=== PATIENT | female | born 1980 | race Caucasian/White ===

== ENCOUNTER 2016-11-12 08:33 | Emergency (ER) | payer OTHER ==
[~2016-11-12] VITALS: Ht 147.3 cm; Wt 76.4 kg
[~2016-11-12 08:33] MED LIST: LEXAPRO 5MG5 MG PO; NEXIUM 20MG20 MG PO; NORCO 325 MG-51 TAB PO; PHENERGAN 25 TA25 MG PO; RESTORIL 77.5 MG/CAP PEG; ULTRAM 50MG TAB50 MG PO; ZOFRAN ODT4 MG PO
[2016-11-12 08:40] VITALS: BP 124/83; TEMP 99.2
[2016-11-12 09:45] LABS: BASO % 0.5 % (0.0-2.0); EOS # 0.2 (0.0-0.7); EOS % 4.1 % (0-4.0); GRAN # 2.3 (1.4-6.5); GRAN % 59.2 % (42.2-75.2); HEMATOCRIT 38.7 % (37.0-47.0); HEMOGLOBIN 12.7 g/dl (12.5-16.0); LYMPH # 1.1 (1.2-3.4); LYMPH % 27.9 % (20.0-51.0); MEAN CELL VOLUME 84 fl (80.0-100.0); MEAN CORPUSCULAR HEMOGLOBIN 27 pg (27.0-31.0); MEAN CORPUSCULAR HGB CONC 33 g/dl (33.0-37.0); MEAN PLATELET VOLUME 11.3 fl (7.4-10.4); MONO # 0.3 (0.1-0.6); MONO % 8.3 % (1.7-9.3); PLATELET COUNT 212 K/mm3 (130-400); RED BLOOD COUNT 4.63 M/mm3 (4.10-5.30); REDCELL DISTRIBUTION WIDTH-CV 14.1 % (11.5-14.5); WHITE BLOOD COUNT 3.9 K/mm3 (4.8-10.8)
[2016-11-12 10:07] LABS: ADJUSTED CALCIUM 9.2 mg/dL (8.4-10.2); ALBUMIN 3.7 gm/dL (3.5-5.0); BILIRUBIN,TOTAL 0.6 mg/dL (0.0-1.0); CREATININE, serum 0.66 mg/dL (0.52-1.25); TOTAL PROTEIN 6.9 gm/dL (6.4-8.2)
[2016-11-12 11:28] LABS: PH 6 (5-8); SQUAMOUS EPITHELIAL 0-2 /hpf; URINE APPEARANCE Clear; URINE BACTERIA None Seen /hpf; URINE BILIRUBIN Negative (NEGATIVE); URINE BLOOD 3+ (NEGATIVE); URINE COLOR Straw; URINE GLUCOSE Negative (NEGATIVE); URINE KETONE Negative (NEGATIVE); URINE RBC >50 /hpf; URINE UROBILINOGEN Negative (NEGATIVE); URINE WBC 0-2 /hpf
[2016-11-12] MEDS ORDERED: PROMETHAZINE12.5 M5 PO (12:00)
[2016-11-12] MEDS ORDERED: PERCOCET 325 MG1 TA2 PO (12:00)
[2016-11-12 12:32] VITALS: PULSE 99
== END 2016-11-12 12:33 | disposition home or self-care (01) ==
LOC: COL.ER 08:33
PROVIDERS: Physician Assistant Medical
DX: R10.11 Right upper quadrant pain (principal); K80.20 Calculus of gallbladder without cholecystitis without obstruction
CPT/HCPCS: J1170; J2405; J2550; J7030

== ENCOUNTER 2017-03-30 17:54 | Emergency (ER) | payer OTHER ==
[~2017-03-30] VITALS: Ht 147.3 cm; Wt 71.8 kg
[~2017-03-30 17:54] MED LIST changes: +PERCOCET 325 MG1 TA2 PO; +PROMETHAZINE12.5 M5 PO
[2017-03-30 18:10] VITALS: BP 110/72; TEMP 98.6
[2017-03-30] MEDS ORDERED: KLONOPIN 1MG1 MG PO (18:13)
[2017-03-30] MEDS ORDERED: ZOFRAN8 MG PO (18:13)
[2017-03-30] MEDS ORDERED: AMBIEN 10MG10 MG PO (18:14)
[2017-03-30 20:26] VITALS: PULSE 77
== END 2017-03-30 20:27 | disposition home or self-care (01) ==
LOC: COL.ER 17:54
DX: L23.6 Allergic contact dermatitis due to food in contact with the skin (principal); F41.9 Anxiety disorder, unspecified; F32.9 Major depressive disorder, single episode, unspecified; E06.3 Autoimmune thyroiditis; Z90.49 Acquired absence of other specified parts of digestive tract; Z87.442 Personal history of urinary calculi; Z98.890 Other specified postprocedural states
CPT/HCPCS: J1200; J2930; J7030

== ENCOUNTER 2017-05-23 12:27 | Emergency (ER) | payer OTHER ==
[~2017-05-23] VITALS: Ht 147.3 cm; Wt 79.4 kg
[~2017-05-23 12:27] MED LIST changes: +AMBIEN 10MG10 MG PO; +KLONOPIN 1MG1 MG PO; +ZOFRAN8 MG PO
[2017-05-23 12:29] VITALS: BP 115/75; PULSE 101; TEMP 98.8
[2017-05-23] MEDS ORDERED: SYNTHROID 0.0.025 MG (12:33)
[2017-05-23 13:14] LABS: BASO % 0.7 % (0.0-2.0); EOS % 0.4 % (0-4.0); GRAN # 3.7 (1.4-6.5); GRAN % 65.2 % (42.2-75.2); HEMATOCRIT 38.8 % (37.0-47.0); HEMOGLOBIN 12.9 g/dl (12.5-16.0); LYMPH # 1.5 (1.2-3.4); LYMPH % 26.6 % (20.0-51.0); MEAN CELL VOLUME 84 fl (80.0-100.0); MEAN CORPUSCULAR HEMOGLOBIN 28 pg (27.0-31.0); MEAN CORPUSCULAR HGB CONC 33 g/dl (33.0-37.0); MEAN PLATELET VOLUME 11.5 fl (7.4-10.4); MONO # 0.4 (0.1-0.6); MONO % 6.7 % (1.7-9.3); PLATELET COUNT 214 K/mm3 (130-400); RED BLOOD COUNT 4.61 M/mm3 (4.10-5.30); REDCELL DISTRIBUTION WIDTH-CV 14.4 % (11.5-14.5); WHITE BLOOD COUNT 5.7 K/mm3 (4.8-10.8)
[2017-05-23 13:25] LABS: ALBUMIN 3.9 gm/dL (3.5-5.0); BILIRUBIN,TOTAL 0.6 mg/dL (0.0-1.0); CALCIUM 8.9 mg/dL (8.4-10.2); CREATININE, serum 0.69 mg/dL (0.52-1.25); MAGNESIUM 1.9 mg/dL (1.6-2.3); POTASSIUM 3.6 mmol/L (3.4-5.0); TOTAL PROTEIN 7.1 gm/dL (6.4-8.2)
== END 2017-05-23 13:50 | disposition home or self-care (01) ==
LOC: COL.ER 12:27
PROVIDERS: Emergency Medicine
DX: R20.9 Unspecified disturbances of skin sensation (principal); E03.9 Hypothyroidism, unspecified; Z90.49 Acquired absence of other specified parts of digestive tract; Z98.890 Other specified postprocedural states; Z87.891 Personal history of nicotine dependence

== ENCOUNTER 2017-11-23 07:38 | Emergency (ER) | payer OTHER ==
[~2017-11-23] VITALS: Ht 147.3 cm; Wt 69.5 kg
[~2017-11-23 07:38] MED LIST changes: +SYNTHROID 0.0.025 MG
[2017-11-23 07:55] VITALS: BP 122/73; PULSE 88; TEMP 98.2
[2017-11-23] MEDS ORDERED: NUVARING VAG RING VG (07:59)
== END 2017-11-23 09:45 | disposition home or self-care (01) ==
LOC: COL.ER 07:38
DX: S43.402A Unspecified sprain of left shoulder joint, initial encounter (principal); F41.9 Anxiety disorder, unspecified; Z90.49 Acquired absence of other specified parts of digestive tract; W00.0XXA Fall on same level due to ice and snow, initial encounter

== ENCOUNTER 2018-07-03 23:03 | Emergency (ER) | payer OTHER ==
[~2018-07-03] VITALS: Ht 147.3 cm; Wt 77.3 kg
[~2018-07-03 23:03] MED LIST changes: +NUVARING VAG RING VG
[2018-07-03 23:10] VITALS: BP 119/85; TEMP 97.8
[2018-07-04] MEDS ORDERED: PAXIL 10MG10 MG PO (01:07)
[2018-07-04] MEDS ORDERED: LEVOXYL0.05 MG PO (01:08)
[2018-07-04 01:55] VITALS: PULSE 85
== END 2018-07-04 01:58 | disposition home or self-care (01) ==
LOC: COL.ER 23:03
DX: B34.9 Viral infection, unspecified (principal); E03.9 Hypothyroidism, unspecified
CPT/HCPCS: J1200; J7030

== ENCOUNTER 2019-04-24 10:41 | Emergency (ER) | payer OTHER ==
[~2019-04-24] VITALS: Ht 149.9 cm; Wt 81.8 kg
[~2019-04-24 10:41] MED LIST changes: +LEVOXYL0.05 MG PO; +PAXIL 10MG10 MG PO
[2019-04-24 10:45] VITALS: TEMP 98.1
[2019-04-24 11:25] LABS: COLLECTION METHOD CLEAN CATCH
[2019-04-24 11:28] LABS: BASO % 0.2 % (0.0-2.0); EOS % 0.1 % (0-4.0); GRAN % 87.8 % (42.2-75.2); HEMATOCRIT 44.8 % (37.0-47.0); HEMOGLOBIN 14.4 g/dl (12.5-16.0); LYMPH # 0.7 (1.2-3.4); MEAN CELL VOLUME 86 fl (80.0-100.0); MEAN CORPUSCULAR HEMOGLOBIN 28 pg (27.0-31.0); MEAN CORPUSCULAR HGB CONC 32 g/dl (33.0-37.0); MEAN PLATELET VOLUME 10.2 fl (7.4-10.4); MONO # 0.3 (0.1-0.6); MONO % 3.5 % (1.7-9.3); PLATELET COUNT 305 K/mm3 (130-400); RED BLOOD COUNT 5.22 M/mm3 (4.10-5.30); REDCELL DISTRIBUTION WIDTH-CV 15.2 % (11.5-14.5)
[2019-04-24 11:36] LABS: MUCOUS Present /lpf; PH 5 (5-8); URINE APPEARANCE Hazy; URINE BACTERIA None Seen /hpf; URINE BILIRUBIN Negative (NEGATIVE); URINE BLOOD 1+ (NEGATIVE); URINE COLOR Yellow; URINE GLUCOSE Negative (NEGATIVE); URINE KETONE 1+ (NEGATIVE); URINE LEUKOCYTE ESTERASE Negative (NEGATIVE); URINE NITRATE Negative (NEGATIVE); URINE PROTEIN(semi-quant) 1+ (NEGATIVE); URINE UROBILINOGEN Negative (NEGATIVE)
[2019-04-24 11:41] LABS: ALBUMIN 4.5 gm/dL (3.5-5.0); BILIRUBIN,TOTAL 0.5 mg/dL (0.0-1.0); CALCIUM 9.4 mg/dL (8.4-10.2); CREATININE, serum 0.66 (0.52-1.25); POTASSIUM 3.9 mmol/L (3.4-5.0); TOTAL PROTEIN 8.4 gm/dL (6.4-8.2)
[2019-04-24] MEDS ORDERED: CEFTIN500 MG PO (12:50)
[2019-04-24 13:05] VITALS: BP 122/79; PULSE 78
== END 2019-04-24 13:08 | disposition home or self-care (01) ==
LOC: COL.ER 10:41
PROVIDERS: Physician Assistant
DX: R10.9 Unspecified abdominal pain (principal); Z87.442 Personal history of urinary calculi
CPT/HCPCS: J1885; J2270; J2405; J7030; Q9967

== ENCOUNTER 2019-08-01 07:57 | Emergency (ER) | payer OTHER ==
[~2019-08-01] VITALS: Ht 149.9 cm; Wt 74.5 kg
[~2019-08-01 07:57] MED LIST changes: +CEFTIN500 MG PO
[2019-08-01 08:02] VITALS: BP 124/82; TEMP 99.3
[2019-08-01 09:30] VITALS: PULSE 89
== END 2019-08-01 09:30 | disposition home or self-care (01) ==
LOC: COL.ER 07:57
DX: J11.1 Influenza due to unidentified influenza virus with other respiratory manifestations (principal); E03.9 Hypothyroidism, unspecified; F41.9 Anxiety disorder, unspecified; F32.9 Major depressive disorder, single episode, unspecified; Z90.89 Acquired absence of other organs; Z98.890 Other specified postprocedural states; Z87.891 Personal history of nicotine dependence; Z87.442 Personal history of urinary calculi

== ENCOUNTER 2019-11-06 13:30 | Emergency (ER) | payer OTHER ==
[~2019-11-06] VITALS: Ht 147.3 cm; Wt 79.5 kg
[2019-11-06 13:35] VITALS: BP 136/77; PULSE 94; TEMP 98.6
[2019-11-06] MEDS ORDERED: DEPO-ESTRADIO5 MG/ML IM (14:00)
[2019-11-06 14:32] LABS: ALANINE AMINOTRANSFERASE 19 U/L (9-52); ALBUMIN 4.6 gm/dL (3.5-5.0); ALKALINE PHOSPHATASE 84 U/L (50-136); ANION GAP 11 mmol/L (7-16); AST,SGOT 23 U/L (15-37); BILIRUBIN,TOTAL 0.6 mg/dL (0.0-1.0); BLOOD UREA NITROGEN 7 mg/dL (7-17); CALCIUM 9.3 mg/dL (8.4-10.2); CARBON DIOXIDE 21 mmol/L (22-30); CHLORIDE 107 mmol/L (98-107); CREATININE, serum 0.54 (0.52-1.25); GLUCOSE 95 mg/dL (74-106); POTASSIUM 4.3 mmol/L (3.4-5.0); SODIUM 138 mmol/L (137-145)
[2019-11-06 14:35] LABS: C-REACTIVE PROTEIN < 0.5 mg/dL (0.0-0.9)
[2019-11-06 15:15] LABS: BASO % 0.1 % (0.0-2.0); EOS % 0.3 % (0-4.0); GRAN # 5.8 (1.4-6.5); GRAN % 75.7 % (42.2-75.2); HEMATOCRIT 39.3 % (37.0-47.0); HEMOGLOBIN 12.8 g/dl (12.5-16.0); LYMPH # 1.3 (1.2-3.4); LYMPH % 17.5 % (20.0-51.0); MEAN CELL VOLUME 86 fl (80.0-100.0); MEAN CORPUSCULAR HEMOGLOBIN 28 pg (27.0-31.0); MEAN CORPUSCULAR HGB CONC 33 g/dl (33.0-37.0); MONO # 0.5 (0.1-0.6); PLATELET COUNT 248 K/mm3 (130-400); RED BLOOD COUNT 4.58 M/mm3 (4.10-5.30); REDCELL DISTRIBUTION WIDTH-CV 14.6 % (11.5-14.5)
[2019-11-06 15:37] LABS: COLLECTION METHOD CLEAN CATCH
[2019-11-06 15:43] LABS: MUCOUS Present /lpf; PH 7 (5-8); SQUAMOUS EPITHELIAL 0-2 /hpf; URINE APPEARANCE Clear; URINE BACTERIA None Seen /hpf; URINE BILIRUBIN Negative (NEGATIVE); URINE BLOOD Negative (NEGATIVE); URINE COLOR Straw; URINE GLUCOSE Negative (NEGATIVE); URINE KETONE Trace (NEGATIVE); URINE LEUKOCYTE ESTERASE Negative (NEGATIVE); URINE NITRATE Negative (NEGATIVE); URINE PROTEIN(semi-quant) Negative (NEGATIVE); URINE RBC 0-2 /hpf; URINE UROBILINOGEN Negative (NEGATIVE)
== END 2019-11-06 18:04 | disposition left against medical advice (07) ==
LOC: COL.ER 13:30
PROVIDERS: Emergency Medicine; Physician Assistant
DX: R10.9 Unspecified abdominal pain (principal); F32.9 Major depressive disorder, single episode, unspecified; F41.9 Anxiety disorder, unspecified; Z87.891 Personal history of nicotine dependence; Z90.89 Acquired absence of other organs
CPT/HCPCS: J0780; J1885; J2405; J7030; Q9967

== ENCOUNTER 2020-03-15 07:12 | Emergency (ER) | payer OTHER ==
[~2020-03-15] VITALS: Ht 147.3 cm; Wt 70.9 kg
[~2020-03-15 07:12] MED LIST changes: +DEPO-ESTRADIO5 MG/ML IM
[2020-03-15 07:17] VITALS: TEMP 97.2
[2020-03-15 07:44] LABS: COLLECTION METHOD CLEAN CATCH
[2020-03-15 07:49] LABS: HEMATOCRIT 41.3 % (37.0-47.0); HEMOGLOBIN 13.6 g/dl (12.5-16.0); MEAN CELL VOLUME 90 fl (80.0-100.0); MEAN CORPUSCULAR HEMOGLOBIN 30 pg (27.0-31.0); MEAN CORPUSCULAR HGB CONC 33 g/dl (33.0-37.0); MEAN PLATELET VOLUME 11.6 fl (7.4-10.4); PLATELET COUNT 210 K/mm3 (130-400); RED BLOOD COUNT 4.61 M/mm3 (4.10-5.30)
[2020-03-15 08:00] LABS: ALBUMIN 4.4 gm/dL (3.5-5.0); BILIRUBIN,TOTAL 0.8 mg/dL (0.0-1.0); CALCIUM 9.2 mg/dL (8.4-10.2); CREATININE, serum 0.77 (0.52-1.25); POTASSIUM 3.9 mmol/L (3.4-5.0); TOTAL PROTEIN 8.1 gm/dL (6.4-8.2)
[2020-03-15 08:01] LABS: MUCOUS Present /lpf; PH 6 (5-8); SQUAMOUS EPITHELIAL 0-2 /hpf; URINE APPEARANCE Hazy; URINE BACTERIA Occasional /hpf; URINE BILIRUBIN Negative (NEGATIVE); URINE BLOOD 2+ (NEGATIVE); URINE COLOR Yellow; URINE GLUCOSE Negative (NEGATIVE); URINE KETONE 2+ (NEGATIVE); URINE LEUKOCYTE ESTERASE 3+ (NEGATIVE); URINE NITRATE Positive (NEGATIVE); URINE PROTEIN(semi-quant) 2+ (NEGATIVE); URINE UROBILINOGEN Negative (NEGATIVE)
[2020-03-15 08:11] LABS: C-REACTIVE PROTEIN 13.3 mg/dL (0.0-0.9)
[2020-03-15] MEDS ORDERED: NORCO 325 MG-51 TAB PO (08:40)
[2020-03-15] MEDS ORDERED: AMOXICILLIN 8751 TAB PO (08:40)
[2020-03-15] MEDS ORDERED: ZOFRAN ODT4 MG PO (08:41)
[2020-03-15 08:50] LABS: ANISOCYTOSIS 1+; BAND 16 % (0-10); HYPOCHROMIA 1+; LYMPHOCYTE 3 % (20.0-51.0); NEUTROPHILS 77 % (42.0-75.2); OVALOCYTES 1+; PLATELET ESTIMATE NORMAL (NORMAL)
[2020-03-15 09:12] VITALS: BP 100/76; PULSE 90
== END 2020-03-15 09:12 | disposition home or self-care (01) ==
LOC: COL.ER 07:12
PROVIDERS: Family Medicine
DX: N12 Tubulo-interstitial nephritis, not specified as acute or chronic (principal)
CPT/HCPCS: J0696; J2270; J2405; J7120

== ENCOUNTER 2020-03-25 16:07 | Emergency (ER) | payer OTHER ==
[~2020-03-25] VITALS: Ht 147.3 cm; Wt 75.5 kg
[~2020-03-25 16:07] MED LIST changes: +AMOXICILLIN 8751 TAB PO
[2020-03-25 16:27] VITALS: TEMP 99.1
[2020-03-25 17:38] LABS: BASO % 0.1 % (0.0-2.0); EOS # 0.6 (0.0-0.7); EOS % 4.9 % (0-4.0); GRAN # 8.8 (1.4-6.5); GRAN % 75.4 % (42.2-75.2); HEMOGLOBIN 15.1 g/dl (12.5-16.0); LYMPH % 8.8 % (20.0-51.0); MEAN CELL VOLUME 85 fl (80.0-100.0); MEAN CORPUSCULAR HEMOGLOBIN 29 pg (27.0-31.0); MEAN CORPUSCULAR HGB CONC 34 g/dl (33.0-37.0); MEAN PLATELET VOLUME 11.3 fl (7.4-10.4); MONO # 1.1 (0.1-0.6); MONO % 9.7 % (1.7-9.3); PLATELET COUNT 319 K/mm3 (130-400); RED BLOOD COUNT 5.28 M/mm3 (4.10-5.30); REDCELL DISTRIBUTION WIDTH-CV 15.6 % (11.5-14.5)
[2020-03-25 17:44] LABS: ALBUMIN 4.5 gm/dL (3.5-5.0); BILIRUBIN,TOTAL 0.6 mg/dL (0.0-1.0); CALCIUM 9.3 mg/dL (8.4-10.2); CREATININE, serum 0.68 (0.52-1.25); POTASSIUM 3.4 mmol/L (3.4-5.0); TOTAL PROTEIN 8.1 gm/dL (6.4-8.2)
[2020-03-25 19:11] LABS: COLLECTION METHOD CLEAN CATCH
[2020-03-25 19:21] LABS: MUCOUS Present /lpf; PH 6 (5-8); URINE APPEARANCE Turbid; URINE BACTERIA Rare /hpf; URINE BILIRUBIN Negative (NEGATIVE); URINE BLOOD 2+ (NEGATIVE); URINE COLOR Amber; URINE GLUCOSE Negative (NEGATIVE); URINE KETONE 2+ (NEGATIVE); URINE LEUKOCYTE ESTERASE Trace (NEGATIVE); URINE NITRATE Negative (NEGATIVE); URINE PROTEIN(semi-quant) 2+ (NEGATIVE); URINE RBC >50 /hpf; URINE UROBILINOGEN Negative (NEGATIVE)
[2020-03-25] MEDS ORDERED: CIPRO 500MG TA500 MG PO (19:30)
[2020-03-25] MEDS ORDERED: ZOFRAN 4MG T4 MG/TAB PO (19:30)
[2020-03-25] MEDS ORDERED: NORCO 325 MG-51 TAB PO (19:30)
[2020-03-25 19:45] VITALS: BP 127/86; PULSE 86
== END 2020-03-25 19:51 | disposition home or self-care (01) ==
LOC: COL.ER 16:07
PROVIDERS: Nurse Practitioner Primary Care
DX: N12 Tubulo-interstitial nephritis, not specified as acute or chronic (principal); F41.9 Anxiety disorder, unspecified; Z87.442 Personal history of urinary calculi; Z90.49 Acquired absence of other specified parts of digestive tract; Z98.890 Other specified postprocedural states
CPT/HCPCS: J0696; J1170; J2405; J2550; J7030

== ENCOUNTER 2022-02-14 08:40 | Emergency (ER) | payer OTHER ==
[~2022-02-14] VITALS: Ht 147.3 cm; Wt 55.5 kg
[~2022-02-14 08:40] MED LIST changes: +CIPRO 500MG TA500 MG PO; +ZOFRAN 4MG T4 MG/TAB PO
[2022-02-14 08:46] VITALS: TEMP 98.4
[2022-02-14 09:05] LABS: BASO % 0.6 % (0.0-2.0); EOS # 0.1 K/mm3 (0.0-0.7); EOS % 1.5 % (0.0-4.0); GRAN # 3.4 K/mm3 (1.4-6.5); GRAN % 62.6 % (42.2-75.2); HEMATOCRIT 40.5 % (37.0-47.0); LYMPH # 1.3 K/mm3 (1.2-3.4); LYMPH % 23.7 % (20.0-51.0); MEAN CELL VOLUME 92 fl (80.0-100.0); MEAN CORPUSCULAR HEMOGLOBIN 30 pg (27-31); MEAN CORPUSCULAR HGB CONC 32 g/dl (33.0-37.0); MEAN PLATELET VOLUME 10.3 fl (7.4-10.4); MONO # 0.6 K/mm3 (0.1-0.6); MONO % 10.9 % (1.7-9.3); PLATELET COUNT 272 K/mm3 (130-400); REDCELL DISTRIBUTION WIDTH-CV 15.9 % (11.5-14.5)
[2022-02-14 09:24] LABS: ALANINE AMINOTRANSFERASE 8 U/L (0-55); ALBUMIN 3.8 gm/dL (3.5-5.0); ALKALINE PHOSPHATASE 62 U/L (40-150); ANION GAP 10 mmol/L (7-16); AST,SGOT 12 U/L (5-34); BILIRUBIN,TOTAL 0.4 mg/dL (0.2-1.2); BLOOD UREA NITROGEN 12 mg/dL (7-19); CALCIUM 8.2 mg/dL (8.4-10.2); CARBON DIOXIDE 23 mmol/L (22-29); CHLORIDE 107 mmol/L (98-107); CREATININE, serum 0.79 mg/dL (0.57-1.11); GLUCOSE 85 mg/dL (70-99); POTASSIUM 3.7 mmol/L (3.5-4.5); SODIUM 140 mmol/L (136-145)
[2022-02-14 09:30] LABS: TROPONIN-I < 0.010 ng/mL (0.00-0.033)
[2022-02-14 12:41] VITALS: BP 113/72; PULSE 84
== END 2022-02-14 12:43 | disposition home or self-care (01) ==
LOC: COL.ER 08:40
PROVIDERS: Emergency Medicine
DX: R07.89 Other chest pain (principal); R10.13 Epigastric pain; F17.210 Nicotine dependence, cigarettes, uncomplicated
CPT/HCPCS: J1885; J2270; J2405

== ENCOUNTER 2024-07-18 10:43 | Emergency (ER) | payer OTHER ==
[~2024-07-18] VITALS: Ht 144.8 cm; Wt 56.8 kg
[2024-07-18 11:34] VITALS: TEMP 99.4
[2024-07-18] MEDS ORDERED: NS 1,000 ML IV ONE (12:30)
[2024-07-18] MEDS ORDERED: fentaNYL 50 MCG/ML 2 ML VIAL IV ONE (12:30)
[2024-07-18 12:32] LABS: BASO % 0.3 % (0.0-2.0); EOS % 0.2 % (0.0-4.0); GRAN # 4.7 K/mm3 (1.4-6.5); HEMOGLOBIN 12.7 g/dl (12.5-16.0); LYMPH # 1.2 K/mm3 (1.2-3.4); LYMPH % 18.5 % (20.0-51.0); MEAN CELL VOLUME 83 fl (80.0-100.0); MEAN CORPUSCULAR HEMOGLOBIN 28 pg (27-31); MEAN CORPUSCULAR HGB CONC 33 g/dl (33.0-37.0); MEAN PLATELET VOLUME 10.1 fl (7.4-10.4); MONO # 0.4 K/mm3 (0.1-0.6); MONO % 5.8 % (1.7-9.3); PLATELET COUNT 263 K/mm3 (130-400); RED BLOOD COUNT 4.56 M/mm3 (4.10-5.30)
[2024-07-18 12:49] LABS: ALBUMIN 3.8 g/dL (3.5-5.0); BILIRUBIN,TOTAL 0.5 mg/dL (0.2-1.2); CREATININE, serum 0.76 mg/dL (0.57-1.11); POTASSIUM 3.7 mEq/L (3.5-4.5); TOTAL PROTEIN 6.8 g/dl (6.2-8.1)
[2024-07-18] MEDS ORDERED: Iohexol 300 - 100 ML VIAL IV ONE (13:34)
[2024-07-18] MEDS ORDERED: NS 100 ML IV SCH (13:34)
[2024-07-18 13:46] LABS: COLLECTION METHOD CLEAN CATCH
[2024-07-18 13:50] LABS: URINE APPEARANCE CLEAR (CLEAR/HAZY); URINE BLOOD NEGATIVE (NEGATIVE); URINE COLOR YELLOW (YELLOW); URINE GLUCOSE NEGATIVE (NEGATIVE); URINE KETONE 2+ (NEGATIVE); URINE NITRATE NEGATIVE (NEGATIVE); URINE PROTEIN(semi-quant) NEGATIVE (NEGATIVE)
[2024-07-18] MEDS ORDERED: ZOFRAN ODT4 MG PO (14:31)
[2024-07-18] MEDS ORDERED: PERCOCET 325 MG1 TA2 PO (14:31)
[2024-07-18 14:55] VITALS: BP 109/73; PULSE 88
== END 2024-07-18 14:55 | disposition home or self-care (01) ==
LOC: COL.ER 10:43
PROVIDERS: Family Medicine
DX: R10.32 Left lower quadrant pain (principal)
CPT/HCPCS: J3010; J7030; Q9967